=== PATIENT | male | born 1950 | race Caucasian/White ===

== ENCOUNTER 2016-10-28 19:55 | Emergency (ER) | payer OTHER ==
[2016-10-28] MEDS ORDERED: HYDROcodone/Acetaminophen 5/325 mg Tablet ONE (20:26)
[2016-10-28 20:31] LABS: Bilirubin Negative (Negative); Blood, Urine Trace (Negative); Clarity Clear (Clear); Glucose, Urine (Dipstick) Negative (Negative); Leukocyte Negative (Negative); Nitrite Negative (Negative); Protein, Urine (Dipstick) 100 mg/dL (Neg-Trace); Urobilinogen 0.2 mg/dL (0.2-1.0); pH, Urine 5.5 (5.0-9.0)
[2016-10-28 20:33] LABS: Specific Gravity, Urine 1.027 (1.002-1.036)
[2016-10-28 20:35] LABS: Bacteria/HPF Rare-Few HPF (None Seen); Renal Epithelial None Seen HPF (0-3); Squamous Epithelial None Seen HPF (0-3); Transitional Epithelial NONE SEEN HPF (0-3); Trichomonas/HPF None Seen HPF (None Seen); WBC/HPF 0-3 HPF (0-3); Yeast-All Forms None Seen HPF (None Seen)
[2016-10-28 20:36] LABS: Crystals/HPF None Seen HPF (Negative); Hyaline Casts/LPF NONE SEEN LPF (0-3 Hyaline); Other Casts/LPF None Seen LPF (0-3 Hyaline); Oval Fat Bodies/HPF None Seen HPF (None Seen); Sperm/HPF None Seen HPF (None Seen)
[2016-10-28] MEDS ORDERED: Tamsulosin HCl 0.4 MG CAP PO SCH (20:45)
--- NOTE | 2016-10-29 09:24 | CT ---
PRELIMINARY REPORT/[facility]/EMERGENCY AFTER HOURS PROCEDURE: EXAM: CT Abdomen and Pelvis Without Intravenous Contrast CLINICAL HISTORY: 66 years old, male; Pain; Abdominal pain; Flank; Left; Patient HX: Left flank pain x 1 day, HX of ki dney stones TECHNIQUE: Axial computed tomography images of the abdomen and pelvis without intravenous contrast. EXAM DATE/TIME: Exam ordered 10/28/2016 8:37 PM COMPARISON: No relevant prior studies available. FINDINGS: Lower thorax: No acute findings. ABDOMEN: Liver: Unremarkable. Gallbladder and bile ducts: Prior cholecystectomy. No ductal dilation. Pancreas: Unremarkable. No ductal dilation. Spleen: Unremarkable. No splenomegaly. Adrenals: Unremarkable. No mass. Kidneys and ureters: 5 mm obstructing stone in the proximal left causing moderate obstructive uropat hy. Incidental left renal cyst. Stomach and bowel: Colonic diverticulosis. No diverticulitis. No obstruction. Appendix: Normal appendix. PELVIS: Bladder: Unremarkable. No stones. Reproductive: Unremarkable as visualized. ABDOMEN and PELVIS: Intraperitoneal space: Mildly increased attenuation of the mesentery near its root with pseudocapsul e and small associated mesenteric lymph nodes, consistent with mesenteric panniculitis. No free air . No significant fluid collection. Bones/joints: No acute fracture. No dislocation. Soft tissues: Unremarkable. Vasculature: Unremarkable. No abdominal aortic aneurysm. Lymph nodes: See above. IMPRESSION: 1. 5 mm obstructing stone in the proximal left causing moderate obstructive uropathy. 2. Mesenteric panniculitis. Thank you for allowing us to participate in the care of your patient. Dictated and Authenticated by: Gerald Jordan MD 10/28/2016 9:10 PM Central Time ([place] \T\ [place]) FINAL REPORT CT OF THE ABDOMEN AND PELVIS WITHOUT CONTRAST: Date: 10/28/16 Comparison is made with the prior CT of 03/29/15 done at [facility]. Axial slices we re acquired, then coronal reconstructions were done. The lung bases are clear with no infiltrate see n. A small calcified granuloma is seen in the left lung on the top slice. Dense coronary artery calc ifications are noted. The upper abdomen showed no acute findings in the liver, spleen, pancreas, ad renal glands or aorta. There has been a prior cholecystectomy. Moderate to severe left hydronephrosis is present due to a 7 to 8 mm stone in the proximal left uret er. Nonobstructing calculi are seen in the right kidney. The left kidney contains a 4.8 cm cyst that has not changed in size since the 2015 study. The stomach is moderately distended and fluid filled but the bowel is not distended at all. Some diverticulosis without diverticulitis is seen, particula rly in the sigmoid region. There is a little bit of streaking in the bowel mesentery, particularly a round the proximal small bowel. This can be seen in mesenteric panniculitis, though this appearance really is little different than the 2015 study. No free air or free fluid was seen. CT of the pelvis showed no pelvic masses, inflammatory changes or free fluid. Degenerative changes a re prominent in the lumbar spine, particularly the lower portions. IMPRESSION: 1. Moderate to severe left hydronephrosis secondary to a 7 to 8 mm proximal left ureteral calcu shaun. 2. Presumed left renal cyst, unchanged from 2015. 3. Nonobstructing right renal calculi. 4. Mild gastric distention with fluid filled stomach. 5. Other findings as listed above. Report in agreement with preliminary reading by Melissa. POS: HOME
== END 2016-10-28 21:36 | disposition home or self-care (01) ==
LOC: BURERS 19:55
DX: N13.2 Hydronephrosis with renal and ureteral calculous obstruction (principal); E11.9 Type 2 diabetes mellitus without complications; I10 Essential (primary) hypertension; E78.5 Hyperlipidemia, unspecified; Z79.84 Long term (current) use of oral hypoglycemic drugs; Z79.82 Long term (current) use of aspirin; Z79.899 Other long term (current) drug therapy
CPT/HCPCS: 74176; 81003; 81015

== ENCOUNTER 2019-07-31 05:37 | Emergency (ER) | payer MEDICARE, OTHER ==
[2019-07-31 05:55] LABS: #Basophils 0.1 thou/uL (0.0-0.2); #Lymphocytes 5.1 thou/uL (1.20-3.40); #Monocytes 0.7 thou/uL (0.11-0.59); #Neutrophils 8.5 thou/uL (1.40-6.50); %Basophils 0.8 % (0.0-1.0); %Eosinophils 0.3 % (0.0-10.0); %Lymphocytes 35.3 % (21.0-51.0); %Monocytes 4.8 % (0.0-10.0); %Neutrophils 58.8 % (42.0-75.0); Hemoglobin 14.8 g/dL (14.0-18.0); Mean Corpuscular HGB CONC 30.1 g/dL (32.0-36.0); Mean Corpuscular Hemoglobin 30.1 pg (27.0-31.0); Mean Corpuscular Volume 99.8 fL (78.0-98.0); Mean Platelet Volume 8.2 fL (7.4-10.4); Platelet Count 89 thou/uL (130-400); RBC Distribution Width 14.6 % (11.5-14.5); Red Blood Cell (RBC) Count 4.93 mill/uL (4.70-6.10); White Blood Cell (WBC) Count 14.5 thou/uL (4.8-10.8)
[2019-07-31 06:10] LABS: ALT (SGPT) 126 U/L (8-55); AST (SGOT) 161 U/L (5-34); Albumin 3.5 g/dL (3.4-4.8); Alkaline Phosphatase 58 U/L (40-110); Anion Gap 32 mmol/L (10-20); BUN (Urea Nitrogen) 88 mg/dL (8.4-25.7); Bilirubin, Total 0.5 mg/dL (0.2-1.2); Calc. Creatinine Clearance 0 mL/min (70-130); Calcium 9.1 mg/dL (7.8-10.44); Carbon Dioxide 15 mmol/L (23-31); Chloride 107 mmol/L (98-107); Estimated GFR-MDRD 7; Globulin 2.9 g/dL (2.4-3.5); Glucose 181 mg/dL (80-115); Potassium 4.9 mmol/L (3.5-5.1); Protein, Total 6.4 g/dL (5.8-8.1); Sodium 149 mmol/L (136-145)
[2019-07-31 06:12] LABS: Anisocytosis SLIGHT = 6-15 cells (100X) (0-5/hpf); MDiff Complete? YES; Macrocytosis SLIGHT = 6-15 cells (100X) (0-5/hpf); Platelet Morphology Comment Appears Decreased
[2019-07-31 06:27] LABS: INR-International Normal Ratio 1.6; Prothrombin Time 18.6 SEC (12.0-14.7)
[2019-07-31 06:34] LABS: CKMB 5.8 ng/mL (0-6.6)
[2019-08-01 11:24] LABS: SARS-CoV-2 MS2 Positive; SARS-CoV-2 N Gene Negative; SARS-CoV-2 S Gene Negative; SARS-CoV-2 orf1ab Negative
== END 2019-07-31 08:50 | disposition expired ==
LOC: BURERS 05:37
DX: I46.9 Cardiac arrest, cause unspecified (principal); N17.9 Acute kidney failure, unspecified; I21.9 Acute myocardial infarction, unspecified; J11.1 Influenza due to unidentified influenza virus with other respiratory manifestations; E11.9 Type 2 diabetes mellitus without complications; I10 Essential (primary) hypertension; F41.9 Anxiety disorder, unspecified; E78.5 Hyperlipidemia, unspecified; F29 Unspecified psychosis not due to a substance or known physiological condition; G47.30 Sleep apnea, unspecified; Z79.899 Other long term (current) drug therapy; Z79.891 Long term (current) use of opiate analgesic
CPT/HCPCS: 80053; 82553; 84484; 85025; 85610; 85730; 87633; 87635; 87798; 87804; 92950; U0002